=== PATIENT | male | born 1980 | race Caucasian/White ===

== ENCOUNTER 2021-11-05 17:21 | Emergency (ER) | payer OTHER, SELFPAY ==
--- NOTE | ~2021-11-05 | XR_ITS ---
EXAMINATION: XR hand RT min 3V INDICATION: Right hand pain, initial encounter TECHNIQUE: Three views of the right hand are obtained. COMPARISON: None available FINDINGS: There is an acute, traumatic, closed, shaft fracture of the third metacarpal. Two oblique f racture planes appear to converge in the lateral aspect of the mid metacarpal, creating a triangular fracture fragment. The distal fracture fragment is ventrally displaced by approximately one cortical width. No additional fracture is identified. The joint spaces are normal. There is soft tissue swelli ng surrounding the fracture. IMPRESSION: 1. Acute fracture of the third metacarpal shaft. Reviewed, dictated and finalized at location F.
[2021-11-05 17:32] VITALS: BP 119/76; PULSE 98; RESP 16; TEMP 37.3; O2SAT 99
[2021-11-05 17:34] VITALS: BP 119/76; PULSE 98; RESP 16; TEMP 37.3; O2SAT 99
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
== END 2021-11-05 18:24 | disposition home or self-care (01) ==
PROVIDERS: Emergency Provider Nurse Practitioner Family
DX: S62.352A Nondisplaced fracture of shaft of third metacarpal bone, right hand, initial encounter for closed fracture (principal); W22.09XA Striking against other stationary object, initial encounter; F17.210 Nicotine dependence, cigarettes, uncomplicated; E78.00 Pure hypercholesterolemia, unspecified
CPT/HCPCS: 29125; 73130; 99214; G0463